=== PATIENT | male | born 1955 | race American Indian/Alaskan Native ===

== ENCOUNTER 2017-02-11 00:05 | Inpatient (IN) | payer OTHER ==
[2017-02-11] MEDS ORDERED: NACL 0.9% 500 ML 500 ML IV ONE (00:43)
[2017-02-11] MEDS ORDERED: TYLENOL ONE (00:44)
[2017-02-11] MEDS ORDERED: TYLENOL PO ONE (00:44)
[2017-02-11 01:26] LABS: Hematocrit 43.8 % (35.5-45.6); Hemoglobin 14.6 gm/dl (11.8-15.2); Mean Corpuscular HGB Conc 33 % (32-34); Mean Corpuscular Hemoglobin 28 pg (28-32); Mean Corpuscular Volume 83 fl (84-94); Red Cell Distribution Width 14.9 % (13.2-15.2)
--- NOTE | 2017-02-11 01:26 | XRay Report ---
FINAL REPORT EXAM: XR CHEST 1V AP HISTORY: Possible sepsis. TECHNIQUE: A single frontal portable radiograph of the chest was obtained. No prior studies are available for comparison. FINDINGS: The cardiac silhouette and mediastinum are within normal limits. The lungs are clear bilaterally, without focal infiltrate or effusion. There is no pneumothorax. No significant osseous abnormalities are identified. IMPRESSION: No active disease seen in the chest.
[2017-02-11 01:32] LABS: Albumin 3.2 g/dL (3.9-5); Albumin/Globulin Ratio 0.8 %; BUN/Creatinine Ratio 13.55; Bilirubin,Total 2.9 mg/dL (0.1-1.2); Calcium 8.5 mg/dL (8.4-10.2); Chloride 87.6 mmol/L (98-107); Potassium 4.4 mmol/L (3.6-5.0); Total Protein 7.2 g/dL (6.3-8.2)
[2017-02-11 01:35] LABS: White Blood Count 28.5 K/mm3 (4.5-11.0)
[2017-02-11 01:37] LABS: INR 1.17 (0.87-1.13)
[2017-02-11 01:42] LABS: Platelet Count 85 K/mm3 (140-440)
[2017-02-11 03:14] LABS: Basophils % (Manual) 0 % (0.0-1.8); Blastocytes % (Manual) 0 %; Eosinophils % (Manual) 0 % (0.0-4.3)
[2017-02-11 03:15] LABS: Anisocytosis 1+; Dohle Bodies 1+
[2017-02-11 03:16] LABS: Diff Status Complete; Toxic Vacuolation Rare
[2017-02-11 03:17] LABS: Ovalocytes Rare; Platelet Estimate Consistent w Auto
[2017-02-11] MEDS ORDERED: ZOFRAN IV ONE (07:43)
[2017-02-11] MEDS ORDERED: SUBLIMAZE IV ONE (07:43)
[2017-02-11] MEDS ORDERED: NACL 0.9% 1000 ML 1,000 ML IV ONE ×2 (07:44→12:09)
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
[2017-02-11 08:06] LABS: Bacteria,Urine 3+ /HPF (Negative); Bilirubin,Urine NEG (Negative); Blood,Urine LG (Negative); Ketones,Urine NEG (Negative); Leukocyte Esterase,Urine LG (Negative); Mucus,Urine FEW /HPF; Nitrite,Urine NEG (Negative)
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
[2017-02-11] MEDS ORDERED: ROCEPHIN/NS 1 GM/50 ML 1 GM/50 ML BAG IV ONE (08:41)
--- NOTE | 2017-02-11 09:59 | Admit Criteria Form ---
Admission Criteria Documentation: SEVERE SEPSIS Clinical Indications for Admission to Inpatient Care (Place 'X' for any and all applicable criteria): Hospital admission is needed for appropriate care of the patient because of ANY ONE of the following: [X]I. Hemodynamic instability indicated by ANY ONE of the following(1)(2)(3)( 4)(5): []a. Vital sign abnormality not readily corrected by appropriate treatment within 12 to 24 hours indicated by ANY ONE of the following: []i) Tachycardia that persists despite appropriate treatment [X]ii) Hypotension that persists despite appropriate treatment []iii) Orthostatic vital sign changes that persist despite appropriate treatment []b. Vital sign abnormality that is severe indicated by ANY ONE of the following: []i. Inadequate perfusion indicated by ANY ONE of the following: []1) Lactic acidosis (greater than 2 mmol/L) []2) New abnormal capillary refill (greater than 3 seconds) []3) Reduced urine output []4) New altered mental status []5) Myocardial Ischemia []ii. Mean arterial pressure [A] less than 60 mm Hg []iii. Mean arterial pressure[A] less than 70 mm Hg after 30 minutes of appropriate treatment (eg, fluid resuscitation) []iv. Sustained heart rate greater than 120 beats per minute in adult []v. IV inotropic or vasopressor medication required to maintain adequate blood pressure or perfusion [X]II. Systemic or infectious condition causing severe symptoms or findings not responsive to emergency or observation care treatment (as appropriate) indicated by ANY ONE of the following: []a. Cardiac arrhythmias of immediate concern(1)(2)(3) []b. Severe endocrine disorder (eg, thyrotoxicosis, adrenal insufficiency)(4)(5) []c. Seizures (eg, new or recurrent)(6) [X]d. New-onset end organ failure or dysfunction as indicated by ANY ONE of the following: []i. Acute unexplained hypoxemia (eg, not from lung infection or chronic disease)(7)(8)(9) [X]ii. Acute renal failure as indicated by new onset of ANY ONE of the following(10)(11)(12)(13)(14): []1) 3-fold rise in serum creatinine from baseline [X]2) Serum creatinine greater than 4 mg/dL (354 micromoles/L) with acute rise greater than 0.5 mg/dL (44.2 micromoles/L) []3) Reduction of more than 75% in estimated glomerular filtration rate from baseline. []4) Estimated glomerular filtration rate less than 35 mL/min/1.73m2 ( 0.59 mL/sec/1.73m2) in child younger than 18 years. []5) Cessation of urine output indicated by ALL of the following: []A. Adequate volume status []B. Inadequate urine output as indicated by ANY ONE of the following: []a. Urine output less than 0.3 mL/kg/hr for 24 hours []b. Anuria (urine output less than 0.1 mL/kg/hr) for 12 hours []iii. Acute mental status changes(15) []iv. Acute hepatic failure (eg, plasma bilirubin greater than 4 mg/ dL (68 micromoles/L), new INR greater than 2.0)(16)(17) []e. Unmanageable nausea and vomiting(18) []f. New-onset or uncontrolled central diabetes insipidus(19)(20) []g. Clinically significant dehydration(18)(21) []h. Hypoglycemia(22) []i. Acidosis (pH less than 7.35) or alkalosis (pH greater than 7.45)( 22)(23) []j. Toxic drug level that indicates need for specific monitoring or treatment(24)(25) []k. Severe electrolyte abnormalities indicated by ALL of the following( 1)(2)(3): []i. Electrolytes and associated findings are not as expected for patient baseline or acceptable treatment effects. []ii. Severe abnormalities indicated by ANY ONE of the following: []1) Sodium less than 130 mEq/L (mmol/L) (new) []2) Sodium less than 135 mEq/L (mmol/L) with ANY ONE of the following: []A. Uncorrectable (to near normal or chronic baseline) after trial of outpatient and emergency treatment []B. Altered mental status []C. Seizures []D. Severe medical etiology requiring inpatient management (eg , heart failure, hypovolemia) []3) Sodium greater than 155 mEq/L (mmol/L) []4) Sodium greater than 150 mEq/L (mmol/L) with ANY ONE of the following: []A. Uncorrectable (to near normal or chronic baseline) with outpatient and emergency treatment []B. Altered mental status []C. Seizures []D. Severe medical etiology (eg, hypovolemia, diabetes insipidus) []5) Potassium less than 2.5 mEq/L (mmol/L) despite outpatient and emergency treatment []6) Potassium less than 3 mEq/L (mmol/L) with ANY ONE of the following : []A. Weakness []B. Cardiac abnormality (eg, arrhythmia, conduction disturbance ) []C. Cardiac ischemia []D. Ileus []E. Ongoing medical cause requiring inpatient management (eg, acute renal wasting or SIADH) []F. Other severe symptoms []7) Potassium greater than 6.5 mEq/L (mmol/L) []8) Potassium greater than 5 mEq/L (mmol/L) with ANY ONE of the following: []A. Uncorrectable (to near normal or chronic baseline) with outpatient and emergency treatment []B. Severe ECG findings[A] []C. Acute worsening of renal failure (creatinine greater than 2.5 mg/dL (221 micromoles/L) or significant elevation for age and size) []D. Severe weakness []E. Severe medical etiology (eg, hemolysis, infection, drug overdose) []9) Calcium less than 7 mg/dL (1.75 mmol/L) despite outpatient and emergency treatment(5) []10) Calcium less than 8 mg/dL (2 mmol/L) with significant symptoms or findings (eg, altered mental status, muscle spasms, seizures, breathing difficulty, cardiac abnormality (eg, arrhythmia or conduction disturbance))(5) []11) Calcium greater than 14 mg/dL (3.5 mmol/L)(5) []12) Calcium greater than 12 mg/dL (3 mmol/L) with ANY ONE of the following(5): []A. Uncorrectable (to near normal or chronic baseline) with outpatient and emergency treatment []B. Significant dehydration or hypovolemia as indicated by ALL of the following(3)(6)(7): []a. Not resolved with initial treatments []b. Clinically significant dehydration as indicated by ANY ONE of the following: [](1) Vomiting refractory to outpatient treatment (ie, precluding oral rehydration) [](2) Inability to drink [](3) Hypernatremia or other electrolyte abnormality unable to be corrected with outpatient and emergency treatment [](4) Failure to remain hydrated with outpatient therapy [](5) Reduced urine output [](6) Hypotension [](7) Serious cause for dehydration requiring acute hospitalization ( eg, bowel obstruction, increased intracranial pressure, infectious cause) [](8) Child with ANY ONE of the following(8): [](i) Severe abdominal tenderness [](ii) Adequate care not available at home [](iii) Severe dehydration (greater than 9% loss of body weight) []C. Significant symptoms or findings (eg, altered mental status , cardiac abnormality (eg, arrhythmia, conduction disturbance), malignant etiology requiring inpatient treatment) []13) Phosphorus less than 1 mg/dL (0.32 mmol/L) []14) Phosphorus less than 1.5 mg/dL (0.48 mmol/L) with ANY ONE of the following: []A. Patient unresponsive to outpatient and emergency treatment []B. Significant symptoms or findings (eg, weakness, altered mental status, breathing difficulty, seizures, rhabdomyolysis) []15) Phosphorus greater than 10 mg/dL (3.2 mmol/L) []16) Phosphorus greater than 4.5 mg/dL (1.45 mmol/L) (new) with ANY ONE of the following: []A. Severe medical etiology (eg, crush injury, acute renal failure) []B. Associated hypocalcemia with significant findings (eg, neurologic symptoms, altered mental status, muscle spasms, seizures, breathing difficulty, cardiac abnormality (eg, arrhythmia, conduction disturbance)) []16) Magnesium less than 1 mg/dL (0.41 mmol/L) []17) Magnesium less than 1.5 mg/dL (0.62 mmol/L) with ANY ONE of the following: []A. Patient unresponsive to outpatient and emergency treatment []B. Associated hypocalcemia with significant findings (eg, altered mental status, muscle spasms, seizures, breathing difficulty, cardiac abnormality (eg, arrhythmia, conduction disturbance)) []C. Associated hypokalemia (potassium less than 3 mEq/L (mmol/L )) with risk of arrhythmia []18) Magnesium greater than 4 mEq/L (2 mmol/L) []19) Magnesium greater than 2.5 mEq/L (1.25 mmol/L) with significant symptoms or findings (eg, weakness, altered mental status, cardiac abnormality (eg, arrhythmia, conduction disturbance), breathing difficulty, severe medical etiology (eg, renal failure, hypovolemia)) []20) Uric acid greater than 20 mg/dL (1190 micromoles/L)(9) []21) Uric acid greater than 8 mg/dL (476 micromoles/L) with significant symptoms or findings of tumor lysis syndrome (eg, creatinine greater than 1.5 times upper limit of normal, cardiac abnormality (eg , arrhythmia, conduction disturbance), seizure)(9) []III. High fever or other high-risk infection situation as indicated by ANY ONE of the following(26)(27)(28): []a. Outpatient and observation care antimicrobial treatment unavailable, not effective, or not appropriate []b. Documented bacteremia []c. Temperature greater than 104.9 degrees F (40.5 degrees C) (oral) []d. Temperature greater than 103.1 degrees F (39.5 degrees C) (oral) or less than 96.8 degrees F (36 degrees C) (rectal) that does not respond to emergency treatment and observation care []IV. High-risk febrile neutropenia[A] as indicated by ANY ONE of the following(29)(30)(31)(32): []a. Profound neutropenia[B] anticipated to extend for more than 7 days []b. Hemodynamic instability []c. Hypoxemia []d. Tachypnea []e. Altered mental status []f. New-onset abdominal pain []g. New-onset vomiting or diarrhea []h. Oral or gastrointestinal mucositis that interferes with swallowing or causes severe diarrhea []i. Focal infection (eg, cellulitis, pneumonia, central line or catheter infection, perirectal abscess) []j. Renal insufficiency (eg, GFR of less than 30 mL/min/1.73m2 (0.5 mL/sec /1.73m2)). []k. Severe liver dysfunction (transaminase levels greater than 5 times normal) []l. Platelet count less than 50,000/mm3 (50 x109/L)(33) []m. Leukemia or lymphoma induction therapy []n. Leukemia not in complete remission or with evidence of disease progression []o. Bone marrow transplant patient []p. Alemtuzumab being used for therapy []q. [employer] Supportive Care in Cancer (MASCC) Risk Index score of less than 21[C](33)(35). []V. Isolation required (eg, tuberculosis that requires isolation, Ebola infection)[D](36)(37)(38)(39)(40) []. Gangrene that requires treatment beyond emergency or observation level care(41)(42) []VII. Antitoxin administration and ongoing observation required (eg, tetanus, botulism)(43)(44) []. Suspected infection with rapid progression or severe symptoms as indicated by ANY ONE of the following(45): []a. Streptococcal or staphylococcal toxic shock(46) []b. Diphtheria(47) []c. Hantavirus(48) []d. Severe acute respiratory syndrome(8)(49) []e. Anthrax(50) []f. Ebola[D](36)(37)(38) []g. Necrotizing soft tissue infection(41)(42) []h. Plague(50) []i. Other suspected infection that requires care beyond emergency or observation level care []VII. Severe adverse drug or systemic toxin reaction as indicated by ANY ONE of the following(24): []a. Serotonin syndrome(51)(52) []b. Neuroleptic malignant syndrome(51)(52) []c. Cholinergic syndrome with severe symptoms (eg, bronchorrhea, weakness , mental status changes, seizures)(53) []d. Anticholinergic syndrome []e. Sympathetic syndrome with severe symptoms (eg, seizures, mental status changes, cardiac dysrhythmias) []f. Other severe adverse drug or systemic toxin reaction that remains after emergency or observation level care (as appropriate) []VIII. Allergic reaction with severe symptoms (not responsive to emergency or observation care treatment as appropriate), including ANY ONE of the following(54): []a. Airway edema (pharyngeal, epiglottic, or laryngeal edema) []b. Stridor []c. Respiratory failure []d. Bronchospasm []e. Hypotension []IX. Environmental emergency (not responsive to emergency or observation care treatment as appropriate) as indicated by ANY ONE of the following(55)(56): []a. Hyperthermia []b. Heat stroke []c. Heat exhaustion []d. Hypothermia (temperature less than 95 degrees F (35 degrees C) rectal) (57) []e. Electrocution(58) []X. Complications of transplanted organ (ie, not covered elsewhere)[E] indicated by ANY ONE of the following(59): []a. Acute graft rejection (or graft vs. host disease)[F] requiring inpatient management (eg, intravenous immunosuppression)(60)(61)(62)( 63) []b. Acute failure of transplanted organ necessitating inpatient care (eg, cannot be managed in other setting) []c. Infection requiring inpatient management (eg, Hemodynamic instability, need for intravenous antimicrobial treatment)(64)(65) []d. Other complication of transplanted organ requiring inpatient management []XI. Systemic or Infectious Condition condition, symptom, or finding for which emergency and observation care have failed or are not considered appropriate. See General Criteria: Observation Care, General Admission Criteria or Pediatric General Admission Criteria guideline as appropriate. (Contents from SEVERE SEPSIS and SYSTEMIC OR INFECTIOUS CONDITION clinical indications for admission to inpatient care have been integrated in this form) The original [email or web address] content created by [email or web address] has been revised. The portions of the content which have been revised are identified through the use of italic text or in bold and [facility] has neither reviewed nor approved the modified material. All other unmodified content is copyright [facility]. Please see references footnoted in the original [facility] edition 2016 Admission Criteria Met: Yes
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
--- NOTE | 2017-02-11 11:27 | Nuclear Medicine Report ---
LUNG SCAN, VENTILATION AND PERFUSION: History: Shortness of breath. Technique: 5mci of Tc99m MAA was infused for the perfusion images. 15mci XE 133 gas was inhaled for the ventilatory images. Correlation is made with a chest x-ray dated 02/11/17. Findings: Inhalation of Xenon gas demonstrates a normal distribution of the activity throughout both lungs. The wash out phases show no focal retention of activity. After injection of Technetium 99m macroaggregated albumin gamma camera imaging of the lungs in multiple projections demonstrates normal pulmonary contours but a heterogeneous distribution of activity. No focal areas of perfusion deficiency are identified. IMPRESSION: Low probability for pulmonary embolus.
[2017-02-11] MEDS ORDERED: NACL 0.45% 1000 ML IV SCH (12:00)
[2017-02-11] MEDS ORDERED: NACL 0.9% 1000 ML 1,000 ML ONE (12:19)
[2017-02-11] MEDS ORDERED: TYLENOL PO PRN (13:43)
[2017-02-11] MEDS ORDERED: DULCOLAX PR PRN (13:43)
[2017-02-11] MEDS ORDERED: MILK OF MAGNESIA PO PRN (13:43)
--- NOTE | 2017-02-11 16:34 | Consultation ---
History of Present Illness Consult date: 02/11/17 Requesting physician: AMY DOLL History of present illness: PULMONARY/CCM CONSULT NOTE (Full dictation # [id number]) Please see dictated notes for full details Past History Past Medical History: No medical history Past Surgical History: No surgical history Social history: denies: smoking, alcohol abuse Family history: CAD, hypertension Medications and Allergies Allergies Allergy/AdvReac Type Severity Reaction Status Date / Time No Known Allergies Allergy Verified 02/11/17 00:46 Home Medications Medication Instructions Recorded Confirmed Last Taken Type Multivitamin Tab [Multiple Vitamin 1 each PO QDAY 02/11/17 02/11/17 02/10/17 History TAB (Theragran)] Active Meds: Active Medications Acetaminophen (Tylenol) 650 mg PO Q4H PRN PRN Reason: Pain MILD(1-3)/Fever >100.5/IZQUIERDO Bisacodyl (Dulcolax) 10 mg SD QDAY PRN PRN Reason: Constipation unrelieved by MOM Ceftriaxone Sodium (Rocephin/Ns 1 Gm/50 Ml) 1 gm in 50 mls @ 100 mls/hr IV Q24HR ONE Stop: 02/12/17 10:29 Dextrose/Sodium Chloride (D5ns) 1,000 mls @ 100 mls/hr IV DIRECT MADELEINE Magnesium Hydroxide (Milk Of Magnesia) 30 ml PO Q4H PRN PRN Reason: Constipation Multivitamins (Theragran Tab) 1 each PO QDAY MADELEINE Ondansetron HCl (Zofran) 4 mg IM Q4H PRN PRN Reason: Nausea And Vomiting Oxycodone/Acetaminophen (Percocet 5/325) 1 tab PO Q6H PRN PRN Reason: Pain, Moderate (4-6) Physical Examination Vital signs: Vital Signs Temp Pulse Resp BP Pulse Ox 100.4 F H 107 H 20 94/59 99 02/11/17 00:33 02/11/17 00:33 02/11/17 00:33 02/11/17 00:33 02/11/17 00:33 Results - Laboratory Findings CBC and BMP: 02/11/17 00:52 02/11/17 00:52 PT/INR, D-dimer PT 15.5 Sec. (12.2-14.9) H 02/11/17 00:52 INR 1.17 (0.87-1.13) H 02/11/17 00:52
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
[2017-02-11 18:14] LABS: Creatine Kinase MB < 1.0 ng/mL (0.0-4.0)
[2017-02-11 18:17] LABS: Creatine Kinase 291 units/L (55-170)
--- NOTE | 2017-02-11 18:36 | Event Note ---
Date: 02/11/17 FENA = 0.9% - continue IVF - nephrology consultation
[2017-02-11] MEDS: PERCOCET 5/325 PO PRN (22:14)
[2017-02-11] MEDS: PEPCID PO SCH (22:14)
[2017-02-11] MEDS: NACL 0.9% 1000 ML 1,000 ML IV SCH (22:15)
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
[2017-02-12 05:46] LABS: Hemoglobin 13.7 gm/dl (11.8-15.2); Mean Corpuscular HGB Conc 34 % (32-34); Mean Corpuscular Hemoglobin 28 pg (28-32); Mean Corpuscular Volume 82 fl (84-94); Red Blood Count 4.98 M/mm3 (3.65-5.03); Red Cell Distribution Width 15.5 % (13.2-15.2)
[2017-02-12 05:48] LABS: Platelet Count 75 K/mm3 (140-440); White Blood Count 25.2 K/mm3 (4.5-11.0)
[2017-02-12 05:56] LABS: INR 1.05 (0.87-1.13)
[2017-02-12 05:57] LABS: Partial Thromboplastin Time 27.8 Sec. (24.2-36.6)
[2017-02-12 06:24] LABS: Albumin 2.5 g/dL (3.9-5); Albumin/Globulin Ratio 0.7 %; BUN/Creatinine Ratio 14.31; Bilirubin,Total 3.3 mg/dL (0.1-1.2); Calcium 7.5 mg/dL (8.4-10.2); Chloride 97.1 mmol/L (98-107); Potassium 4.2 mmol/L (3.6-5.0); Total Protein 6.2 g/dL (6.3-8.2)
[2017-02-12 07:03] LABS: Anisocytosis 1+; Basophils % (Manual) 0 % (0.0-1.8); Blastocytes % (Manual) 0 %
[2017-02-12 07:04] LABS: Diff Status Complete; Platelet Estimate Consistent w Auto
[2017-02-12] MEDS: PERCOCET 5/325 PO PRN (07:25)
[2017-02-12] MEDS: NACL 0.9% 1000 ML 1,000 ML IV SCH ×2 (07:26→18:43)
--- NOTE | 2017-02-12 07:44 | Ultrasound Report ---
ULTRASOUND RENAL BILATERAL HISTORY: Acute renal failure. TECHNIQUE: transabdominal ultrasound with color Doppler interrogation. Correlation is made with the CT abdomen pelvis without contrast performed the same day. FINDINGS: The right kidney measures 14.1 x 5.2 x 5.4cm. Right renal cortex: 1.4cm. A 3.7 cm simple cyst is noted at the inferior pole of the right kidney. 3 or 4 tiny calyceal stones are also noted in the right kidney. No mass or hydronephrosis. The left kidney measures 11.3 x 5.6 x 5.3cm. Left renal cortex: 1.6cm. There are 3 cysts in the superior left kidney measuring up to 2.9 cm. 3 or 4 calyceal stones in the left kidney are also noted. There is moderate left hydronephrosis. The mid left ureteral stone is not identified on ultrasound as noted on CT. Both kidneys are markedly echogenic. The bladder is partially empty but unremarkable. IMPRESSION: Bilateral nephrolithiasis. There is moderate left hydronephrosis. A mid left ureteral stone measuring up to 8 mm was noted on the noncontrast CT performed the same day. Bilateral renal cysts. Echogenic kidneys consistent with nonspecific renal parenchymal disease.
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
[2017-02-12] MEDS: ZOFRAN IM PRN ×2 (08:55→22:33)
[2017-02-12] MEDS: MORPHINE IV PRN ×4 (09:02→22:34)
[2017-02-12] MEDS ORDERED: ROCEPHIN/NS 1 GM/50 ML 1 GM/50 ML BAG IV ONE (10:00)
[2017-02-12] MEDS: THERAGRAN Tab PO SCH (10:12)
[2017-02-12] MEDS: PEPCID PO SCH (10:12)
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
[2017-02-12] MEDS ORDERED: NACL 0.9% 1000 ML 1,000 ML IV ONE (12:45)
--- NOTE | 2017-02-12 14:38 | Progress Note ---
Assessment and Plan Patient resting on room air. Weak. No complaint of chest pain or shortness of breath.O2 saturation 98%. Subjective Date of service: 02/12/17 Interval history: Patient resting on room air. Weak. No complaint of chest pain or shortness of breath.O2 saturation 98%. Objective Vital Signs - 12hr 02/12/17 02/12/17 02/12/17 05:12 08:10 12:55 Temperature 97.8 F 98.4 F 97.8 F Pulse Rate 73 76 84 Respiratory 20 18 18 Rate Blood Pressure 94/56 96/58 107/59 O2 Sat by Pulse 97 97 98 Oximetry Constitutional: no acute distress, alert Eyes: non-icteric ENT: oropharynx moist Neck: supple Ascultation: Bilateral: clear Cardiovascular: regular rate and rhythm Gastrointestinal: normoactive bowel sounds, soft Integumentary: normal Extremities: no cyanosis, no edema Neurologic: normal mental status, non-focal exam, pupils equal and round, CN II- XII normal Psychiatric: depressed CBC and BMP: 02/12/17 04:52 02/12/17 04:52 ABG, PT/INR, D-dimer: PT/INR, D-dimer PT 14.2 Sec. (12.2-14.9) 02/12/17 04:52 INR 1.05 (0.87-1.13) 02/12/17 04:52 D-Dimer 7262.23 ng/mlDDU (0-234) H 02/11/17 17:12 Abnormal lab findings: Abnormal Labs 02/11/17 02/11/17 02/11/17 17:01 17:12 17:12 WBC MCV RDW Plt Count Seg Neuts % (Manual) Lymphocytes % (Manual) Eosinophils % (Manual) Seg Neutrophils # Man Lymphocytes # (Manual) Eosinophils # (Manual) D-Dimer 7262.23 H Sodium Chloride Carbon Dioxide BUN Creatinine Calcium Total Bilirubin Alkaline Phosphatase Total Creatine Kinase 291 H Total Protein Albumin Urine Creatinine 95.2 H 02/12/17 02/12/17 04:52 04:52 WBC 25.2 H MCV 82 L RDW 15.5 H Plt Count 75 L Seg Neuts % (Manual) 78.0 H Lymphocytes % (Manual) 3.0 L Eosinophils % (Manual) 5.0 H Seg Neutrophils # Man 19.7 H Lymphocytes # (Manual) 0.8 L Eosinophils # (Manual) 1.3 H D-Dimer Sodium 135 L D Chloride 97.1 L Carbon Dioxide 20 L BUN 83 H Creatinine 5.8 H Calcium 7.5 L Total Bilirubin 3.30 H Alkaline Phosphatase 148 H Total Creatine Kinase Total Protein 6.2 L Albumin 2.5 L Urine Creatinine
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
[2017-02-12 22:37] LABS: Urine Drugs of Abuse Note Disclamer
[2017-02-13] MEDS: PERCOCET 5/325 PO PRN (01:47)
[2017-02-13 06:25] LABS: Hematocrit 43.3 % (35.5-45.6); Hemoglobin 14.3 gm/dl (11.8-15.2); Mean Corpuscular HGB Conc 33 % (32-34); Mean Corpuscular Hemoglobin 28 pg (28-32); Mean Corpuscular Volume 83 fl (84-94); Red Blood Count 5.21 M/mm3 (3.65-5.03); Red Cell Distribution Width 15.5 % (13.2-15.2)
[2017-02-13 06:33] LABS: Platelet Count 87 K/mm3 (140-440); White Blood Count 20.8 K/mm3 (4.5-11.0)
[2017-02-13 06:41] LABS: Albumin 2.6 g/dL (3.9-5); Albumin/Globulin Ratio 0.7 %; BUN/Creatinine Ratio 16.81; Bilirubin,Total 2.5 mg/dL (0.1-1.2); Chloride 97.3 mmol/L (98-107); Potassium 4.5 mmol/L (3.6-5.0); Total Protein 6.3 g/dL (6.3-8.2)
[2017-02-13] MEDS: D5NS 1,000 ML IV SCH ×2 (06:51→16:26)
[2017-02-13] MEDS: MORPHINE IV PRN (07:04)
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
--- NOTE | 2017-02-13 08:40 | Progress Note ---
Assessment and Plan - Patient Problems (1) JAYY (acute kidney injury) Current Visit: Yes Status: Acute Plan to address problem: Acute kidney injury is hemodynamically mediated in the setting of volume depletion and hypotension. Renal function is improving. Continue maintenance IV fluids. Renal prognosis is guarded. (2) Hyponatremia Current Visit: Yes Status: Acute Plan to address problem: Hyponatremia secondary to volume depletion. Sodium level is better. (3) Hydronephrosis of left kidney Current Visit: Yes Status: Acute Plan to address problem: S/p Nephrostomy. (4) Sepsis associated hypotension Current Visit: Yes Status: Acute (5) Bilateral nephrolithiasis Current Visit: Yes Status: Chronic Subjective Date of service: 02/13/17 Interval history: Patient was seen s/p Nephrostomy tube. Objective - Vital Signs Vital signs: Vital Signs - 12hr 02/12/17 02/12/17 02/12/17 20:50 22:00 22:34 Temperature 97.6 F Pulse Rate 80 Respiratory 20 19 Rate Respiratory 20 Rate [abd] Blood Pressure 109/66 O2 Sat by Pulse 97 Oximetry 02/13/17 02/13/17 02/13/17 01:04 03:00 05:56 Temperature 98.8 F 97.6 F Pulse Rate 81 80 77 Respiratory 20 20 Rate Respiratory Rate [abd] Blood Pressure 105/64 115/68 O2 Sat by Pulse 97 99 Oximetry 02/13/17 07:04 Temperature Pulse Rate Respiratory 19 Rate Respiratory Rate [abd] Blood Pressure O2 Sat by Pulse Oximetry - General Appearance General appearance: well-developed, well-nourished, appears stated age, other ( somnolent) EENT: ATNC, PERRL Neck: supple Respiratory: Present: Clear to Ascultation Cardiology: regular, S1S2, no murmurs Gastrointestinal: normoactive bowel sounds, other (lefts ided nephrostomy tube noted) Integumentary: no rash Neurologic: other (somnolent) Musculoskeletal: other (no edema) - Lab 02/13/17 16:02 02/14/17 12:10 Most recent lab results Calcium 8.0 mg/dL (8.4-10.2) L 02/13/17 05:03 Urine Creatinine 95.2 mg/dL (0.1-20.0) H 02/11/17 17:01 Urine Sodium 25 mEq/L 02/11/17 17:01
[2017-02-13] MEDS: THERAGRAN Tab PO SCH (09:25)
[2017-02-13 09:44] LABS: Basophils % (Manual) 0 % (0.0-1.8); Blastocytes % (Manual) 0 %; Eosinophils % (Manual) 0 % (0.0-4.3)
[2017-02-13 09:45] LABS: Anisocytosis 1+; Diff Status Complete; Platelet Estimate Consistent w Auto; Schistocytes Rare; Spherocytes Rare
[2017-02-13] MEDS: PEPCID PO SCH (10:32)
[2017-02-13 11:53] LABS: Hematocrit 46.3 % (35.5-45.6); Hemoglobin 15.1 gm/dl (11.8-15.2); Mean Corpuscular HGB Conc 33 % (32-34); Mean Corpuscular Hemoglobin 27 pg (28-32); Mean Corpuscular Volume 83 fl (84-94); Red Blood Count 5.55 M/mm3 (3.65-5.03)
[2017-02-13 11:58] LABS: Platelet Count 92 K/mm3 (140-440); White Blood Count 20.5 K/mm3 (4.5-11.0)
[2017-02-13 12:16] LABS: Albumin 2.7 g/dL (3.9-5); Albumin/Globulin Ratio 0.7 %; BUN/Creatinine Ratio 16.19; Bilirubin,Total 2.6 mg/dL (0.1-1.2); Calcium 8.3 mg/dL (8.4-10.2); Chloride 95.4 mmol/L (98-107); Potassium 4.6 mmol/L (3.6-5.0); Total Protein 6.6 g/dL (6.3-8.2)
--- NOTE | 2017-02-13 12:27 | Progress Note ---
Assessment and Plan - Patient Problems (1) JAYY (acute kidney injury) Status: Acute Plan to address problem: - improving numbers - non oliguric - continue volume resuscitation - address nephrolithiasis re: hydronephrosis - will defer to nephrology and urology (2) Hydronephrosis of left kidney Status: Acute Plan to address problem: - tentatively for stenting / nephrostomy tube (3) Sepsis associated hypotension Status: Acute Plan to address problem: - improved - continue empiric AB's - continue volume resuscitation - follow cultures (4) UTI (urinary tract infection) Status: Acute Qualifiers: Urinary tract infection type: U Hematuria presence: H Indwelling urinary catheter type: I Encounter type: E Plan to address problem: - growing gram negative rods - follow sensitivities - continue empiric AB's (5) Discharge planning issues Status: Acute Plan to address problem: - home at discharge Subjective Date of service: 02/13/17 Principal diagnosis: Sepsis Syndrome; JAYY (? on CKD) Interval history: Seen and examined at bedside; 24 hour events reviewed; nursing and respiratory care staff consulted; no adverse overnight events reported to me; resting peacefully in bed; overall feels a little better; seen by Urology and nephrology ; no more hypotensive episodes Objective Vital Signs - 12hr 02/13/17 02/13/17 02/13/17 01:04 03:00 05:56 Temperature 98.8 F 97.6 F Pulse Rate 81 80 77 Respiratory 20 20 Rate Blood Pressure 105/64 115/68 O2 Sat by Pulse 97 99 Oximetry 02/13/17 02/13/17 07:04 08:05 Temperature 97.9 F Pulse Rate 72 Respiratory 19 18 Rate Blood Pressure 119/65 O2 Sat by Pulse 99 Oximetry Constitutional: no acute distress, alert Eyes: non-icteric ENT: oropharynx moist Neck: supple Effort: normal Ascultation: Bilateral: clear Cardiovascular: regular rate and rhythm Gastrointestinal: normoactive bowel sounds, soft, non-tender, non-distended Integumentary: normal Extremities: no cyanosis, no edema, pulses normal, no ischemia or petechiae Neurologic: normal mental status, non-focal exam, pupils equal and round, motor strength normal and Psychiatric: mood appropriate, affect normal CBC and BMP: 02/13/17 16:02 02/14/17 12:10 ABG, PT/INR, D-dimer: PT/INR, D-dimer PT 14.2 Sec. (12.2-14.9) 02/12/17 04:52 INR 1.05 (0.87-1.13) 02/12/17 04:52 D-Dimer 7262.23 ng/mlDDU (0-234) H 02/11/17 17:12 Abnormal lab findings: Abnormal Labs 02/11/17 02/11/17 02/11/17 17:01 17:12 17:12 WBC RBC Hct MCV MCH RDW Plt Count Seg Neuts % (Manual) Lymphocytes % (Manual) Eosinophils % (Manual) Seg Neutrophils # Man Lymphocytes # (Manual) Eosinophils # (Manual) D-Dimer 7262.23 H Sodium Chloride Carbon Dioxide BUN Creatinine Glucose Calcium Total Bilirubin Alkaline Phosphatase Total Creatine Kinase 291 H Total Protein Albumin PTH Intact Urine Creatinine 95.2 H 02/12/17 02/12/17 02/13/17 04:52 04:52 05:03 WBC 25.2 H 20.8 H RBC 5.21 H Hct MCV 82 L 83 L MCH RDW 15.5 H 15.5 H Plt Count 75 L 87 L Seg Neuts % (Manual) 78.0 H 89.0 H Lymphocytes % (Manual) 3.0 L 2.0 L Eosinophils % (Manual) 5.0 H Seg Neutrophils # Man 19.7 H 18.5 H Lymphocytes # (Manual) 0.8 L 0.4 L Eosinophils # (Manual) 1.3 H D-Dimer Sodium 135 L D Chloride 97.1 L Carbon Dioxide 20 L BUN 83 H Creatinine 5.8 H Glucose Calcium 7.5 L Total Bilirubin 3.30 H Alkaline Phosphatase 148 H Total Creatine Kinase Total Protein 6.2 L Albumin 2.5 L PTH Intact Urine Creatinine 02/13/17 02/13/17 02/13/17 05:03 05:03 11:36 WBC 20.5 H RBC 5.55 H Hct 46.3 H MCV 83 L MCH 27 L RDW 16.0 H Plt Count 92 L Seg Neuts % (Manual) Lymphocytes % (Manual) Eosinophils % (Manual) Seg Neutrophils # Man Lymphocytes # (Manual) Eosinophils # (Manual) D-Dimer Sodium 132 L Chloride 97.3 L Carbon Dioxide 20 L BUN 74 H Creatinine 4.4 H Glucose 104 H Calcium 8.0 L Total Bilirubin 2.50 H Alkaline Phosphatase Total Creatine Kinase Total Protein Albumin 2.6 L PTH Intact 69.58 H Urine Creatinine 02/13/17 11:36 WBC RBC Hct MCV MCH RDW Plt Count Seg Neuts % (Manual) Lymphocytes % (Manual) Eosinophils % (Manual) Seg Neutrophils # Man Lymphocytes # (Manual) Eosinophils # (Manual) D-Dimer Sodium 132 L Chloride 95.4 L Carbon Dioxide BUN 68 H Creatinine 4.2 H Glucose 105 H Calcium 8.3 L Total Bilirubin 2.60 H Alkaline Phosphatase Total Creatine Kinase Total Protein Albumin 2.7 L PTH Intact Urine Creatinine Chest x-ray: image reviewed
[2017-02-13] MEDS ORDERED: LEVAQUIN 500MG/100ML 500 MG/100 ML BAG IV ONE (12:59)
[2017-02-13] MEDS ORDERED: HEPARIN/NS 5000 UNIT/500ML(CATH LAB) 0 ML IR ONE (13:00)
[2017-02-13] MEDS ORDERED: NACL 0.9% 0 ML IR ONE (13:01)
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
[2017-02-13] MEDS ORDERED: NACL 0.9% 500 ML 500 ML ONE (13:14)
[2017-02-13] MEDS ORDERED: XYLOCAINE 2% INFILTRATI ONE (13:15)
[2017-02-13] MEDS: SUBLIMAZE ONE ×5 (13:15→14:01)
[2017-02-13] MEDS: VERSED ONE ×5 (13:21→14:00)
[2017-02-13] MEDS ORDERED: DEMEROL ONE ×2 (14:01→14:22)
--- NOTE | 2017-02-13 14:19 | Operative Report ---
Operative Report Operative Report: Procedure: 1. Left antegrade nephrostogram. 2. Successful left nephrostomy catheter placement. Date of Procedure: 02/13/2017 History/Indication: This is a 61-year-old male with left hydronephrosis and an obstructing ureteral calculus. Physician: Madeline Fang MD Technique/Procedural Details: Informed consent was obtained. The patient was placed in the prone position on the procedure table and prepped and draped in the usual sterile fashion. A timeout was performed. Sonography of the left flank was performed, and permanent images were acquired. Local anesthetic was administered. Under continuous ultrasound guidance, a 21-gauge [place] needle was advanced into an inferior/posterior calyx. A small amount of contrast was injected to confirm placement within the collecting system. An 018 wire was advanced through the needle into the ureter. The needle was exchanged for an Accustick system. The Accustick system was then used to upsize to a Benavides wire. The Benavides wire and a 4 Cameroonian vertebral catheter were passed in to the distal ureter. Contrast was again injected. The Benavides wire was replaced with an Amplatz superstiff wire. Tissue dilation was performed with a 7 Cameroonian dilator. Thereafter, an 8 Cam[place]onian nephrostomy catheter was advanced over the Amplatz wire. The locking loop was formed in the renal pelvis. Contrast was injected and aspirated. The catheter was sutured to the skin with 2-0 Ethilon suture. A drainage bag was connected. Sterile dressings were placed, and the patient was transported back to the recovery area in stable condition. Discussion: There is mild left hydronephrosis and moderate left hydroureter. There is an obstructing calculus in the distal ureter, beyond which no contrast or wire passage is possible. There is successful placement of an 8 Cam[place]onian nephrostomy catheter in a posterior /inferior calyx. The newly placed catheter fills and decompresses the collecting system adequately. Specimen: Urine sample EBL: <5 cc
[2017-02-13] MEDS ORDERED: NACL 0.9% 1000 ML 1,000 ML ONE (14:21)
--- NOTE | 2017-02-13 15:04 | Vascular Lab Report ---
LOWER EXTREMITY VENOUS DUPLEX: REASON FOR EXAM: elevated d-dimer, edema. COMMENTS ON THE RIGHT: All veins visualized are freely compressible without evidence of internal echogenicity. Flow is spontaneous and phasic throughout. COMMENTS ON THE LEFT: All veins visualized are freely compressible without evidence of internal echogenicity. Flow is spontaneous and phasic throughout. IMPRESSION: No evidence of acute or chronic deep venous thrombosis in either lower extremity.
[2017-02-13 16:15] LABS: Hematocrit 40.7 % (35.5-45.6); Hemoglobin 13.4 gm/dl (11.8-15.2); Mean Corpuscular HGB Conc 33 % (32-34); Mean Corpuscular Hemoglobin 27 pg (28-32); Mean Corpuscular Volume 83 fl (84-94); Red Blood Count 4.93 M/mm3 (3.65-5.03); Red Cell Distribution Width 15.7 % (13.2-15.2); White Blood Count 14.5 K/mm3 (4.5-11.0)
[2017-02-13 16:16] LABS: Platelet Count 91 K/mm3 (140-440)
[2017-02-13 16:33] LABS: Albumin 2.3 g/dL (3.9-5); Albumin/Globulin Ratio 0.7 %; BUN/Creatinine Ratio 17.77; Bilirubin,Total 3.4 mg/dL (0.1-1.2); Calcium 7.5 mg/dL (8.4-10.2); Chloride 102.1 mmol/L (98-107); Potassium 3.9 mmol/L (3.6-5.0); Total Protein 5.7 g/dL (6.3-8.2)
[2017-02-14] MEDS: D5NS 1,000 ML IV SCH (03:07)
[2017-02-14] MEDS: MORPHINE IV PRN (05:20)
--- NOTE | 2017-02-14 08:07 | Progress Note ---
Hospitalist Physical - Constitutional Vitals: Temp Pulse Resp BP Pulse Ox 99.3 F 85 18 116/64 98 02/14/17 05:06 02/14/17 05:06 02/14/17 05:06 02/14/17 05:06 02/14/17 05:06 General appearance: Present: mild distress Results - Labs CBC & Chem 7: 02/13/17 16:02 02/13/17 15:57 Labs: Laboratory Last Values WBC 14.5 K/mm3 (4.5-11.0) H 02/13/17 16:02 RBC 4.93 M/mm3 (3.65-5.03) 02/13/17 16:02 Hgb 13.4 gm/dl (11.8-15.2) 02/13/17 16:02 Hct 40.7 % (35.5-45.6) 02/13/17 16:02 MCV 83 fl (84-94) L 02/13/17 16:02 MCH 27 pg (28-32) L 02/13/17 16:02 MCHC 33 % (32-34) 02/13/17 16:02 RDW 15.7 % (13.2-15.2) H 02/13/17 16:02 Plt Count 91 K/mm3 (140-440) L 02/13/17 16:02 Add Manual Diff Complete 02/13/17 05:03 Total Counted 100 02/13/17 05:03 Seg Neutrophils % Office Clin Asst 02/11/17 00:52 Seg Neuts % (Manual) 89.0 % (40.0-70.0) H 02/13/17 05:03 Band Neutrophils % 5.0 % 02/13/17 05:03 Lymphocytes % (Manual) 2.0 % (13.4-35.0) L 02/13/17 05:03 Reactive Lymphs % (Man) 0 % 02/13/17 05:03 Monocytes % (Manual) 4.0 % (0.0-7.3) 02/13/17 05:03 Eosinophils % (Manual) 0 % (0.0-4.3) 02/13/17 05:03 Basophils % (Manual) 0 % (0.0-1.8) 02/13/17 05:03 Metamyelocytes % 0 % 02/13/17 05:03 Myelocytes % 0 % 08/10/17 05:03 Promyelocytes % 0 % 02/13/17 05:03 Blast Cells % 0 % 02/13/17 05:03 Nucleated RBC % Not Reportable 02/13/17 05:03 Seg Neutrophils # Man 18.5 K/mm3 (1.8-7.7) H 02/13/17 05:03 Band Neutrophils # 1.0 K/mm3 02/13/17 05:03 Lymphocytes # (Manual) 0.4 K/mm3 (1.2-5.4) L 02/13/17 05:03 Abs React Lymphs (Man) 0.0 K/mm3 02/13/17 05:03 Monocytes # (Manual) 0.8 K/mm3 (0.0-0.8) 02/13/17 05:03 Eosinophils # (Manual) 0.0 K/mm3 (0.0-0.4) 02/13/17 05:03 Basophils # (Manual) 0.0 K/mm3 (0.0-0.1) 02/13/17 05:03 Metamyelocytes # 0.0 K/mm3 02/13/17 05:03 Myelocytes # 0.0 K/mm3 02/13/17 05:03 Promyelocytes # 0.0 K/mm3 02/13/17 05:03 Blast Cells # 0.0 K/mm3 02/13/17 05:03 WBC Morphology Not Reportable 02/13/17 05:03 Hypersegmented Neuts Not Reportable 02/13/17 05:03 Hyposegmented Neuts Not Reportable 02/13/17 05:03 Hypogranular Neuts Not Reportable 02/13/17 05:03 Smudge Cells Not Reportable 02/13/17 05:03 Toxic Granulation Not Reportable 02/13/17 05:03 Toxic Vacuolation Not Reportable 02/13/17 05:03 Dohle Bodies Not Reportable 02/13/17 05:03 Pelger-Huet Anomaly Not Reportable 02/13/17 05:03 Cricket Rods Not Reportable 02/13/17 05:03 Platelet Estimate Consistent w auto 02/13/17 05:03 Clumped Platelets Not Reportable 02/13/17 05:03 Plt Clumps, EDTA Not Reportable 02/13/17 05:03 Large Platelets Not Reportable 02/13/17 05:03 Giant Platelets Not Reportable 02/13/17 05:03 Platelet Satelliting Not Reportable 02/13/17 05:03 Plt Morphology Comment Not Reportable 02/13/17 05:03 RBC Morphology Not Reportable 02/13/17 05:03 Dimorphic RBCs Not Reportable 02/13/17 05:03 Polychromasia Not Reportable 02/13/17 05:03 Hypochromasia Not Reportable 02/13/17 05:03 Poikilocytosis Not Reportable 02/13/17 05:03 Anisocytosis 1+ 02/13/17 05:03 Microcytosis Not Reportable 02/13/17 05:03 Macrocytosis Not Reportable 02/13/17 05:03 Spherocytes Rare 02/13/17 05:03 Pappenheimer Bodies Not Reportable 02/13/17 05:03 Sickle Cells Not Reportable 02/13/17 05:03 Target Cells Not Reportable 02/13/17 05:03 Tear Drop Cells Not Reportable 02/13/17 05:03 Ovalocytes Not Reportable 02/13/17 05:03 Helmet Cells Not Reportable 02/13/17 05:03 Rodriguez-Premont Bodies Not Reportable 02/13/17 05:03 Feura Bush Rings Not Reportable 02/13/17 05:03 Zainab Cells Not Reportable 02/13/17 05:03 Bite Cells Not Reportable 02/13/17 05:03 Crenated Cell Not Reportable 02/13/17 05:03 Elliptocytes Not Reportable 02/13/17 05:03 Acanthocytes (Spur) Not Reportable 02/13/17 05:03 Rouleaux Not Reportable 02/13/17 05:03 Hemoglobin C Crystals Not Reportable 02/13/17 05:03 Schistocytes Rare 02/13/17 05:03 Malaria parasites Not Reportable 02/13/17 05:03 Terry Bodies Not Reportable 02/13/17 05:03 Hem Pathologist Commnt No 02/13/17 05:03 PT 14.2 Sec. (12.2-14.9) 02/12/17 04:52 INR 1.05 (0.87-1.13) 02/12/17 04:52 APTT 27.8 Sec. (24.2-36.6) 02/12/17 04:52 D-Dimer 7262.23 ng/mlDDU (0-234) H 02/11/17 17:12 VBG pH 7.405 (7.320-7.420) 02/11/17 00:52 Sodium 134 mmol/L (137-145) L 02/13/17 15:57 Potassium 3.9 mmol/L (3.6-5.0) 02/13/17 15:57 Chloride 102.1 mmol/L (98-107) 02/13/17 15:57 Carbon Dioxide 19 mmol/L (22-30) L 02/13/17 15:57 Anion Gap 17 mmol/L 02/13/17 15:57 BUN 64 mg/dL (9-20) H 02/13/17 15:57 Creatinine 3.6 mg/dL (0.8-1.5) H 02/13/17 15:57 Estimated GFR 21 ml/min 02/13/17 15:57 BUN/Creatinine Ratio 17.77 % 02/13/17 15:57 Glucose 113 mg/dL (75-100) H 02/13/17 15:57 Lactic Acid 1.40 mmol/L (0.7-2.0) 02/11/17 03:43 Calcium 7.5 mg/dL (8.4-10.2) L 02/13/17 15:57 Total Bilirubin 3.40 mg/dL (0.1-1.2) H 02/13/17 15:57 AST 24 units/L (5-40) 02/13/17 15:57 ALT 26 units/L (7-56) 02/13/17 15:57 Alkaline Phosphatase 123 units/L (35-129) 02/13/17 15:57 Total Creatine Kinase 291 units/L (55-170) H 02/11/17 17:12 CK-MB (CK-2) < 1.0 ng/mL (0.0-4.0) 02/11/17 17:12 CK-MB (CK-2) Rel Index 0.3 (0-4) 02/11/17 17:12 Troponin T < 0.010 ng/mL (0.00-0.029) 02/11/17 17:12 C-Reactive Protein 35.60 mg/dL (0.00-1.30) H 02/11/17 00:58 Total Protein 5.7 g/dL (6.3-8.2) L 02/13/17 15:57 Albumin 2.3 g/dL (3.9-5) L 02/13/17 15:57 Albumin/Globulin Ratio 0.7 % 02/13/17 15:57 PTH Intact 69.58 pg/mL (15-65) H 02/13/17 05:03 Urine Color Judith (Yellow) 02/11/17 07:45 Urine Turbidity Turbid (Clear) 02/11/17 07:45 Urine pH 5.0 (5.0-7.0) 02/11/17 07:45 Ur Specific Percy 1.012 (1.003-1.030) 02/11/17 07:45 Urine Protein 100 mg/dl mg/dL (Negative) 02/11/17 07:45 Urine Glucose (UA) Neg mg/dL (Negative) 02/11/17 07:45 Urine Ketones Neg mg/dL (Negative) 02/11/17 07:45 Urine Blood Lg (Negative) 02/11/17 07:45 Urine Nitrite Neg (Negative) 02/11/17 07:45 Urine Bilirubin Neg (Negative) 02/11/17 07:45 Urine Urobilinogen 2.0 mg/dL (<2.0) 02/11/17 07:45 Ur Leukocyte Esterase Lg (Negative) 02/11/17 07:45 Urine WBC (Auto) 90.0 /HPF (0.0-6.0) H 02/11/17 07:45 Urine RBC (Auto) 31.0 /HPF (0.0-6.0) 02/11/17 07:45 U Epithel Cells (Auto) 1.0 /HPF (0-13.0) 02/11/17 07:45 Urine Bacteria (Auto) 3+ /HPF (Negative) 02/11/17 07:45 Amorphous Crystals 2+ 02/11/17 07:45 Urine Mucus Few /HPF 02/11/17 07:45 Urine Creatinine 95.2 mg/dL (0.1-20.0) H 02/11/17 17:01 Urine Sodium 25 mEq/L 02/11/17 17:01 Urine Opiates Screen Presumptive negative 02/12/17 Unknown Urine Methadone Screen Presumptive negative 02/12/17 Unknown Ur Barbiturates Screen Presumptive negative 02/12/17 Unknown Ur Phencyclidine Scrn Presumptive negative 02/12/17 Unknown Ur Amphetamines Screen Presumptive negative 02/12/17 Unknown U Benzodiazepines Scrn Presumptive negative 02/12/17 Unknown Urine Cocaine Screen Presumptive negative 02/12/17 Unknown U Marijuana (THC) Screen Presumptive negative 02/12/17 Unknown Drugs of Abuse Note Disclamer 02/12/17 Unknown
--- NOTE | 2017-02-14 08:22 | Progress Note ---
Assessment and Plan - Patient Problems (1) JAYY (acute kidney injury) Current Visit: Yes Status: Acute Plan to address problem: Acute kidney injury is hemodynamically mediated in the setting of volume depletion and hypotension. Renal function is improving. Continue maintenance IV fluids. Renal prognosis is guarded. (2) Hyponatremia Current Visit: Yes Status: Acute Plan to address problem: Hyponatremia secondary to volume depletion. Sodium level is better. (3) Hydronephrosis of left kidney Current Visit: Yes Status: Acute Plan to address problem: S/p Nephrostomy. (4) Sepsis associated hypotension Current Visit: Yes Status: Acute (5) Bilateral nephrolithiasis Current Visit: Yes Status: Chronic Subjective Date of service: 02/14/17 Interval history: Patient was seen s/p Nephrostomy tube. Objective - Vital Signs Vital signs: Vital Signs - 12hr 02/13/17 02/14/17 02/14/17 23:00 00:14 05:06 Temperature 98.8 F 99.3 F Pulse Rate 80 84 85 Respiratory 20 18 Rate Blood Pressure 107/65 116/64 O2 Sat by Pulse 97 98 Oximetry - General Appearance General appearance: well-developed, well-nourished, appears stated age, other ( somnolent / sedated) EENT: ATNC, PERRL Neck: supple Respiratory: Present: Clear to Ascultation Cardiology: regular, S1S2, no murmurs Gastrointestinal: normoactive bowel sounds, other (left sided nephrostomy tube noted) Integumentary: no rash Neurologic: other (stuporous) Musculoskeletal: other (no edema) - Lab 02/13/17 16:02 02/14/17 12:10 Most recent lab results Calcium 7.5 mg/dL (8.4-10.2) L 02/13/17 15:57 Urine Creatinine 95.2 mg/dL (0.1-20.0) H 02/11/17 17:01 Urine Sodium 25 mEq/L 02/11/17 17:01
[2017-02-14 08:29] LABS: Albumin 2.5 g/dL (3.9-5); Albumin/Globulin Ratio 0.7 %; BUN/Creatinine Ratio 19.56; Bilirubin,Total 3.9 mg/dL (0.1-1.2); Calcium 7.9 mg/dL (8.4-10.2); Chloride 104.6 mmol/L (98-107); Total Protein 5.9 g/dL (6.3-8.2)
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
[2017-02-14] MEDS: PEPCID PO SCH (09:46)
[2017-02-14] MEDS: THERAGRAN Tab PO SCH (09:46)
--- NOTE | 2017-02-14 12:43 | Progress Note ---
Subjective Date of service: 02/14/17 Interval history: Seen and examined at bedside; 24 hour events reviewed; nursing and respiratory care staff consulted; no adverse overnight events reported to me; Objective Vital Signs - 12hr 02/14/17 02/14/17 02/14/17 05:06 08:00 10:00 Temperature 99.3 F 97.8 F Pulse Rate 85 83 84 Pulse Rate [ 83 Right Radial] Respiratory 18 20 20 Rate Respiratory 20 Rate [abd] Blood Pressure 116/64 129/75 O2 Sat by Pulse 98 94 94 Oximetry Constitutional: no acute distress, alert Eyes: non-icteric ENT: oropharynx moist Neck: supple Ascultation: Bilateral: clear Cardiovascular: regular rate and rhythm Gastrointestinal: normoactive bowel sounds, soft Integumentary: normal Extremities: no cyanosis, no edema Neurologic: normal mental status, non-focal exam, pupils equal and round, CN II- XII normal Psychiatric: depressed CBC and BMP: 02/13/17 16:02 02/14/17 07:01 ABG, PT/INR, D-dimer: PT/INR, D-dimer PT 14.2 Sec. (12.2-14.9) 02/12/17 04:52 INR 1.05 (0.87-1.13) 02/12/17 04:52 D-Dimer 7262.23 ng/mlDDU (0-234) H 02/11/17 17:12 Abnormal lab findings: Abnormal Labs 02/11/17 02/11/17 02/11/17 17:01 17:12 17:12 WBC RBC Hct MCV MCH RDW Plt Count Seg Neuts % (Manual) Lymphocytes % (Manual) Eosinophils % (Manual) Seg Neutrophils # Man Lymphocytes # (Manual) Eosinophils # (Manual) D-Dimer 7262.23 H Sodium Chloride Carbon Dioxide BUN Creatinine Glucose Calcium Total Bilirubin AST ALT Alkaline Phosphatase Total Creatine Kinase 291 H Total Protein Albumin PTH Intact Urine Creatinine 95.2 H 02/12/17 02/12/17 02/13/17 04:52 04:52 05:03 WBC 25.2 H 20.8 H RBC 5.21 H Hct MCV 82 L 83 L MCH RDW 15.5 H 15.5 H Plt Count 75 L 87 L Seg Neuts % (Manual) 78.0 H 89.0 H Lymphocytes % (Manual) 3.0 L 2.0 L Eosinophils % (Manual) 5.0 H Seg Neutrophils # Man 19.7 H 18.5 H Lymphocytes # (Manual) 0.8 L 0.4 L Eosinophils # (Manual) 1.3 H D-Dimer Sodium 135 L D Chloride 97.1 L Carbon Dioxide 20 L BUN 83 H Creatinine 5.8 H Glucose Calcium 7.5 L Total Bilirubin 3.30 H AST ALT Alkaline Phosphatase 148 H Total Creatine Kinase Total Protein 6.2 L Albumin 2.5 L PTH Intact Urine Creatinine 02/13/17 02/13/17 02/13/17 05:03 05:03 11:36 WBC 20.5 H RBC 5.55 H Hct 46.3 H MCV 83 L MCH 27 L RDW 16.0 H Plt Count 92 L Seg Neuts % (Manual) Lymphocytes % (Manual) Eosinophils % (Manual) Seg Neutrophils # Man Lymphocytes # (Manual) Eosinophils # (Manual) D-Dimer Sodium 132 L Chloride 97.3 L Carbon Dioxide 20 L BUN 74 H Creatinine 4.4 H Glucose 104 H Calcium 8.0 L Total Bilirubin 2.50 H AST ALT Alkaline Phosphatase Total Creatine Kinase Total Protein Albumin 2.6 L PTH Intact 69.58 H Urine Creatinine 02/13/17 02/13/17 02/13/17 11:36 15:57 16:02 WBC 14.5 H RBC Hct MCV 83 L MCH 27 L RDW 15.7 H Plt Count 91 L Seg Neuts % (Manual) Lymphocytes % (Manual) Eosinophils % (Manual) Seg Neutrophils # Man Lymphocytes # (Manual) Eosinophils # (Manual) D-Dimer Sodium 132 L 134 L Chloride 95.4 L Carbon Dioxide 19 L BUN 68 H 64 H Creatinine 4.2 H 3.6 H Glucose 105 H 113 H Calcium 8.3 L 7.5 L Total Bilirubin 2.60 H 3.40 H AST ALT Alkaline Phosphatase Total Creatine Kinase Total Protein 5.7 L Albumin 2.7 L 2.3 L PTH Intact Urine Creatinine 02/14/17 07:01 WBC RBC Hct MCV MCH RDW Plt Count Seg Neuts % (Manual) Lymphocytes % (Manual) Eosinophils % (Manual) Seg Neutrophils # Man Lymphocytes # (Manual) Eosinophils # (Manual) D-Dimer Sodium Chloride Carbon Dioxide BUN 45 H Creatinine 2.3 H Glucose 111 H Calcium 7.9 L Total Bilirubin 3.90 H AST 83 H ALT 78 H Alkaline Phosphatase Total Creatine Kinase Total Protein 5.9 L Albumin 2.5 L PTH Intact Urine Creatinine
[2017-02-14 13:03] LABS: Albumin 2.4 g/dL (3.9-5); Albumin/Globulin Ratio 0.7 %; Bilirubin,Total 3.7 mg/dL (0.1-1.2); Calcium 8.1 mg/dL (8.4-10.2); Chloride 99.6 mmol/L (98-107); Potassium 4.2 mmol/L (3.6-5.0)
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
[2017-02-14 18:34] VITALS: BP 129/68
--- NOTE | 2017-02-15 12:46 | Event Note ---
Date: 02/15/17 Spoke with Mr javier this morning by phone. Updated his blood cx result. He stated that he doing lot better except mild pain at the nephrostomy tube area. He is tolerating diet and spiked no fever. He was advised to come back to hospital, he stated he is doing better and he will come for blood cx tomorrow. Spoke with his also and she expresses the same.
--- NOTE | 2017-02-17 09:04 | Event Note ---
Date: 02/16/17 Patient was called again today. He was informed and explained about his blood culture report, again requested to come back to hospital for repeat blood culture and likely 2d echocardiogram, he stated that he is doing better and he will discuss with his to make the decision. He was informed about the risk of positive blood culture including endocarditis, sepsis and importance of repeat blood cx. He verbalized understanding.
== END 2017-02-14 19:35 | disposition home or self-care (01) | DRG 871 ==
LOC: ED 00:05 → 3A 10:40 → CC1 14:14 → 4A 17:54
PROVIDERS: ADMIT Internal Medicine; ATTEND Internal Medicine
PROC: 0T9430Z Drainage of Left Kidney Pelvis with Drainage Device, Percutaneous Approach (ICD-10-PCS; principal; 2017-02-11)
PROC: BT141ZZ Fluoroscopy of Kidneys, Ureters and Bladder using Low Osmolar Contrast (ICD-10-PCS; 2017-02-11)
DX: A41.9 Sepsis, unspecified organism (principal); N17.0 Acute kidney failure with tubular necrosis; N39.0 Urinary tract infection, site not specified; E87.1 Hypo-osmolality and hyponatremia; N13.2 Hydronephrosis with renal and ureteral calculous obstruction; E87.2 Acidosis; R65.20 Severe sepsis without septic shock; R94.5 Abnormal results of liver function studies; D69.6 Thrombocytopenia, unspecified; Z82.49 Family history of ischemic heart disease and other diseases of the circulatory system; Z59.0 Homelessness
CPT/HCPCS: 36415; 50432; 71010; 72125; 74176; 76770; 78582; 80053; 80307; 81001; 82140; 82550; 82553; 82570; 82805; 83970; 84300; 84484; 85007; 85025; 85027; 85379; 85610; 85730; 86140; 87040; 87076; 87086; 87186; 93005; 93010; 93970; 96361; 96365; 96375; A9540; A9558; C1729; C1751; C1769; J0696; J1644; J1956; J2175; J2250; J2270; J2405; J3010; J7030; J7040; J7042; Q9967

== ENCOUNTER 2017-02-25 12:25 | Emergency (ER) | payer OTHER ==
--- NOTE | 2017-02-25 12:49 | Emergency Department Report ---
Entered by SHERMAN OROSCO, acting as scribe for ANTOINETTE INFANTE NP. Stated Complaint: TUBE REMOVAL/BLOOD WORK Time Seen by Provider: 02/25/17 12:39 - HPI History of Present Illness: 61 y/o male presents with requests to remove tubes and have blood work done. He was d/c here on 02/14 after admission for sepsis and renal failure. Sx include abd pain, back pain but pt denies fever, dizziness, vomiting, chills. He reports leg swelling that has since resolved. Urologist- Dr. Joseph. - ROS Review of Systems: -fever -chills -dizzy -vomit +abd pain +back pain - Exam Vital Signs: Vital Signs 02/25/17 12:40 Temperature 98.7 F Pulse Rate 80 Respiratory 18 Rate Blood Pressure 105/69 O2 Sat by Pulse 100 Oximetry Physical Exam: thin male, non toxic a and o x4 pt looks well, non-toxic MSE screening note: Focused history and physical exam performed. Due to findings the following was ordered: labs Patient discussed with doctor:: SHUN WHITE ED Disposition for MSE Condition: Stable This documentation as recorded by the scribe,SHERMAN OROSCO,accurately reflects the service I personally performed and the decisions made by ,ANTOINETTE INFANTE , DECKHAND CRAB BOAT.
[2017-02-25 13:40] LABS: Basophils % (Auto) 0.8 % (0.0-1.8); Eosinophils % (Auto) 1.2 % (0.0-4.3); Hematocrit 34.4 % (35.5-45.6); Hemoglobin 11.7 gm/dl (11.8-15.2); Mean Corpuscular HGB Conc 34 % (32-34); Mean Corpuscular Hemoglobin 28 pg (28-32); Mean Corpuscular Volume 84 fl (84-94); Platelet Count 464 K/mm3 (140-440); Red Cell Distribution Width 14.6 % (13.2-15.2); White Blood Count 3.5 K/mm3 (4.5-11.0)
[2017-02-25 13:55] LABS: Alanine Aminotransferase 136 units/L (7-56); Albumin 3.3 g/dL (3.9-5); Albumin/Globulin Ratio 0.9 %; Alkaline Phosphatase 77 units/L (35-129); Anion Gap 15 mmol/L; BUN/Creatinine Ratio 14.54; Blood Urea Nitrogen 16 mg/dL (9-20); Calcium 8.2 mg/dL (8.4-10.2); Carbon Dioxide 27 mmol/L (22-30); Chloride 102.1 mmol/L (98-107); Glucose 85 mg/dL (75-100); Potassium 4.7 mmol/L (3.6-5.0); Sodium 139 mmol/L (137-145); Total Protein 7.1 g/dL (6.3-8.2)
[2017-02-25 20:46] LABS: Bilirubin,Urine NEG (Negative); Blood,Urine MOD (Negative); Ketones,Urine NEG (Negative); Leukocyte Esterase,Urine MOD (Negative); Mucus,Urine FEW /HPF; Nitrite,Urine NEG (Negative); Urobilinogen,Urine < 2.0 mg/dL (<2.0)
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
[2017-02-25 22:03] VITALS: BP 110/63
== END 2017-02-25 22:03 | disposition home or self-care (01) ==
LOC: ED 12:25
DX: Z43.6 Encounter for attention to other artificial openings of urinary tract (principal)
CPT/HCPCS: 36415; 80053; 81001; 82140; 85025; 87040; 87076; 87086; 87186; 99283

== ENCOUNTER 2017-03-03 11:51 | Day surgery (SDC) | payer SELFPAY ==
[~2017-03-03 11:51] MED LIST: ANCEF/STERILE WATER 2 GM/20 ML 2 GM/20 ML SYRINGE IV NR; NACL 0.9% 1000 ML 1,000 ML IV SCH
[2017-03-03 12:58] LABS: Basophils % (Auto) 0.3 % (0.0-1.8); Hematocrit 37.5 % (35.5-45.6); Hemoglobin 12.1 gm/dl (11.8-15.2); Mean Corpuscular HGB Conc 32 % (32-34); Mean Corpuscular Hemoglobin 27 pg (28-32); Mean Corpuscular Volume 84 fl (84-94); Platelet Count 275 K/mm3 (140-440); Red Blood Count 4.47 M/mm3 (3.65-5.03); Red Cell Distribution Width 14.4 % (13.2-15.2); White Blood Count 4.3 K/mm3 (4.5-11.0)
[2017-03-03 13:02] LABS: INR 1.04 (0.87-1.13)
[2017-03-03 13:03] LABS: Partial Thromboplastin Time 28.7 Sec. (24.2-36.6)
[2017-03-03] MEDS ORDERED: NACL 0.9% 250ML 250 ML ONE (13:04)
[2017-03-03] MEDS ORDERED: NACL 0.9% 500 ML IR ONE (13:05)
[2017-03-03] MEDS ORDERED: LEVAQUIN 500MG/100ML 500 MG/100 ML BAG IV ONE (13:06)
[2017-03-03] MEDS ORDERED: XYLOCAINE 2% INFILTRATI ONE (13:06)
[2017-03-03 13:09] LABS: Anion Gap 16 mmol/L; BUN/Creatinine Ratio 12.72; Blood Urea Nitrogen 14 mg/dL (9-20); Calcium 8.8 mg/dL (8.4-10.2); Carbon Dioxide 27 mmol/L (22-30); Chloride 100.3 mmol/L (98-107); Glucose 86 mg/dL (75-100); Potassium 4.1 mmol/L (3.6-5.0); Sodium 139 mmol/L (137-145)
[2017-03-03] MEDS: VERSED ONE ×3 (13:29→13:43)
[2017-03-03] MEDS: SUBLIMAZE ONE ×3 (13:29→13:42)
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
--- NOTE | 2017-03-03 13:58 | Operative Report ---
Operative Report Operative Report: EXAM: FLUOROSCOPIC GUIDED EVALUATION OF INDWELLING NEPHROSTOMY TUBE, NEPHROSTOMY TUBE EXCHANGED CLINICAL INDICATION: PATIENT WITH A HISTORY OF OBSTRUCTING STONE WITH INDWELLING NEPHROSTOMY TUBE THAT HIS NO LONGER WORKING DATE: 03/03/2017 PROCEDURE: Following an explanation of the risks, benefits and alternatives; written informed consent was obtained. The patient was brought to the angiographic suite and placed in prone position on the examination table. His back and indwelling ostomy tube were prepped and draped in the usual sterile fashion. 1% lidocaine was used for anesthesia at the catheter exit site and along the tunnel tract. Contrast was injected through the indwelling nephrostomy tube. This demonstrates retraction of the nephrostomy tube with a posterior calyx. The collecting systemminimal hydronephrosis. The catheter was cut to release the pigtail and a 0.035 Glidewire advanced through the indwelling nephrostomy tube. The Glidewire was coiled within the renal pelvis and indwelling nephrostomy tube removed intact. A 4 Ethiopian vertebral catheter was then advanced over the guidewire and together the Glidewire and catheter were advanced into the distal ureter. The Glidewire was exchanged for a J-wire and the vertebral catheter removed. A new a Ethiopian pigtail nephrostomy tube was then placed over the J-wire and advanced and coiled to position the pigtail within the renal pelvis. The catheter was securely fasten the skin surface using 2-0 Ethilon suture and a stay fixed device. The catheter was then placed to dependent drainage. The patient tolerated the procedure well. There were no immediate post procedure competitions. Conscious sedation was performed under the guidance of radiologic nursing. Continuous cardiopulmonary monitoring was utilized. IMPRESSION: 1) Contrast injection through indwelling nephrostomy tube demonstrating retraction of the nephrostomy tube to a posterior inferior calyx with minimal hydronephrosis. 2) Fluoroscopic guided exchange of nephrostomy tube was placement of a new 8 Ethiopian nephrostomy tube.
[2017-03-03 15:19] VITALS: BP 121/63
== END 2017-03-03 11:52 | disposition home or self-care (01) ==
LOC: CATHLABREC 11:51
PROVIDERS: ATTEND Radiology Diagnostic Radiology
DX: T83.092A Other mechanical complication of nephrostomy catheter, initial encounter (principal); N13.30 Unspecified hydronephrosis; Y83.8 Other surgical procedures as the cause of abnormal reaction of the patient, or of later complication, without mention of misadventure at the time of the procedure
CPT/HCPCS: 36415; 50435; 80048; 85025; 85610; 85730; C1729; C1751; C1769; J1956; J2250; J3010; J7050; Q9967